=== PATIENT | female | born 1990 ===

== ENCOUNTER 2024-11-16 23:14 | Observation (INO) | payer MEDICAID, OTHER ==
[~2024-11-16] VITALS: Ht 162.6 cm; Wt 69.9 kg
[2024-11-17] MEDS ORDERED: LACTATED RINGER'S 1,000 ML IV SCH (00:15)
[2024-11-17] MEDS: LACTATED RINGER'S 1,000 ML IV ONE (00:43)
--- NOTE | 2024-11-17 15:57 | DVHDS2 ---
Physician Discharge Progress N Final Diagnosis: 32 WKS CRAMPING Operations or Procedures: Operations or Procedures NST 32 WKS,SONO Condition on Discharge: Good Disposition: Home Discharge Instructions: Diet: Regular Activity: No Restrictions, As Tolerated Follow Up/Referral: Please follow up with your Primary OB as soon as possible. For any concerns, please go to the nearest hospital. Medications: Continue home meds Follow Up Care: Specialist: 3D Discharge Statement: "Patient was advised to return to the ER or call 911 if any headaches, dizziness, shortness of breath, chest pain, abdominal pain, bleeding, fevers, or worsening of medical condition. Patient was counseled about treatment plan, medications, possible side effects, patientverbalized understanding. All questions were answered to the best of my ability. This discharge took greater then 30 minutes in planning, reviewing documentation, counseling the patient, and discussing with other team members." Visit Coding OBGYN Date of Service: Nov 17, 2024 Billing Provider: ZANE BEARDEN DO WARD HELPER Common Visit Codes: 41958-FFY/OBS DISCH DAY >30MIN WARD HELPER Procedure Codes: 81997-84- NON-STRESS TEST ZANE BEARDEN DO Nov 17, 2024 15:57
== END 2024-11-17 01:25 | disposition home or self-care (01) ==
LOC: LDRP 23:14
PROVIDERS: ADMIT Obstetrics & Gynecology; ATTEND Obstetrics & Gynecology
DX: O62.9 Abnormality of forces of labor, unspecified (principal); O99.513 Diseases of the respiratory system complicating pregnancy, third trimester; R06.02 Shortness of breath; O99.891 Other specified diseases and conditions complicating pregnancy; M54.9 Dorsalgia, unspecified; Z3A.32 32 weeks gestation of pregnancy; Z79.899 Other long term (current) drug therapy; Z98.890 Other specified postprocedural states
CPT/HCPCS: 59025; 81002; 94760; 96360; G0378